=== PATIENT | male | born 1980 | race African-American/Black ===

== ENCOUNTER 2017-03-14 21:45 | Emergency (ER) | payer SELFPAY ==
[~2017-03-14] VITALS: Ht 177.8 cm; Wt 100.5 kg
[2017-03-14 21:50] VITALS: Ht 177.8 cm; Wt 100.5 kg
[2017-03-15] MEDS ORDERED: IBUPROFEN 600 MG TAB PO ONE
--- NOTE | 2017-03-15 00:46 | RADRPT ---
PROCEDURE: US left lower extremity venous Doppler CLINICAL INDICATION: Swelling TECHNIQUE: Multiple sonographic images of the left lower extremity deep venous system was obtained utilizing grayscale, color-flow, compressive sonography and Doppler imaging with augmentation. COMPARISON: No pertinent prior examinations were submitted for comparison. FINDINGS: There is normal compressibility and flow within the left common femoral, superficial femoral, poplit eal, and calf veins. IMPRESSION: No sonographic evidence for left deep venous thrombosis. RPTAT: HIKT .Adrien Cuenca MD, MD Date Time Electronically viewed and signed by .Adrien Cuenca MD, MD on 03/15/2017 00:46 .T/
--- NOTE | 2017-03-15 00:50 | RADRPT ---
PROCEDURE: XR Knee. CLINICAL INDICATION: Trauma TECHNIQUE: AP, lateral and oblique view of the left knee were obtained. COMPARISON: There are no similar studies submitted for comparison. FINDINGS: There is normal mineralization.There is no acute fracture or dislocation.No destructive lesion is id entified. There is likely a suprapatellar joint effusion. IMPRESSION: Probable joint effusion. RPTAT: HIKT .Adrien Cuenca MD, MD Date Time Electronically viewed and signed by .Adrien Cuenca MD, MD on 03/15/2017 00:49 .T/
[2017-03-15] MEDS ORDERED: NAPR-260 PO (01:03)
[2017-03-15] MEDS ORDERED: HYDR-906 PO (01:03)
--- NOTE | 2017-03-18 15:54 | ERD ---
ER Documentation Chief Complaint Date/Time DATE: 03/18/17 TIME: 15:51 Chief Complaint Fell last night and complaining of Left leg pain possible knee HPI This patient is a 36-year-old male presenting to the emergency department for left knee pain which occurred after a fall at approximately 10 PM last night. The patient states he was heavily intoxicated with alcohol and he does not remember exactly what occurred to the knee. The patient knows he did not have loss of consciousness or head injury. Aggravating factors of the knee pain include walking and bending the knee. He has taken no medication for relief of symptoms. Patient denies alleviating factors. He denies radiation of pain. He did not hear a pop when the injury occurred. The patient denies fevers, chills, or other symptoms at this time. ROS All systems reviewed and are negative except as per history of present illness. Medications Home Meds Active Scripts Naproxen* (Naprosyn*) 500 Mg Tablet, 500 MG PO BID Y for PAIN AND/OR INFLAMMATION, #30 TAB Prov:SCOTT MAYER PA-C 03/15/17 Hydrocodone/Acetaminophen ([place] 5-325 Tablet) 1 Each Tablet, 1 TAB PO Q6H Y for PAIN, #7 TAB Prov:SCOTT MAYER PA-C 03/15/17 Allergies Allergies: Coded Allergies: No Known Allergy (Unverified , 03/14/17) PMhx/Soc Medical and Surgical Hx: pt denies Medical Hx, pt denies Surgical Hx History of Surgery: No Anesthesia Reaction: No Hx Neurological Disorder: No Hx Respiratory Disorders: No Hx Cardiac Disorders: No Hx Psychiatric Problems: No Hx Miscellaneous Medical Probl: No Hx Alcohol Use: Yes Hx Substance Use: No Hx Tobacco Use: Yes Smoking Status: Current every day smoker Physical Exam Vitals Vital Signs Date Time Temp Pulse Resp B/P Pulse Ox O2 Delivery O2 Flow Rate FiO2 03/14/17 21:50 99.0 110 20 159/91 100 Physical Exam Const: The patient is resting comfortably in no acute distress. Head: Atraumatic Eyes: Normal Conjunctiva ENT: Normal External Ears, Nose and Mouth. Neck: Full range of motion..~ No meningismus. Resp: Clear to auscultation bilaterally Cardio: Regular rate and rhythm, no murmurs Abd: Soft, non tender, non distended. Normal bowel sounds Skin: No petechiae or rashes Back: No midline or flank tenderness Ext: There is some tenderness palpation of the left knee at the lateral and medial joint lines. There is limited range of motion secondary to pain. There is some mild soft tissue swelling noted localized to the knee. Neur: Awake and alert Psych: Normal Mood and Affect Results 24 hrs Current Medications Medications (Trade) Dose Ordered Sig/Adam Route PRN Reason Start Time Stop Time Status Last Admin Dose Admin Ibuprofen (Motrin) 600 mg ONCE ONCE PO 03/15/17 00:00 03/15/17 00:01 DC 03/15/17 00:07 [place] [address] Radiology Main Line: [phone] DIAGNOSTIC IMAGING REPORT Patient: AILEEN ORTIZ : 1980 Age: 36 Sex: M MR #: [id number] DOS: 03/15/17 0000 Ordering MD: SCOTT MAYER PA-C Location: [facility] Room/Bed: PROCEDURE: US left lower extremity venous Doppler CLINICAL INDICATION: Swelling TECHNIQUE: Multiple sonographic images of the left lower extremity deep venous system was obtained utilizing grayscale, color-flow, compressive sonography and Doppler imaging with augmentation. COMPARISON: No pertinent prior examinations were submitted for comparison. FINDINGS: There is normal compressibility and flow within the left common femoral, superficial femoral, popliteal, and calf veins. IMPRESSION: No sonographic evidence for left deep venous thrombosis. RPTAT: HIKT .Adrien Cuenca MD, Date Time Electronically viewed and signed by .Adrien Cuenca MD, MD on 03/15/2017 00:46 .T/ CC: SCOTT MAYER PA-C [place] [address] Radiology Main Line: [phone] DIAGNOSTIC IMAGING REPORT Patient: AILEEN ORTIZ : 1980 Age: 36 Sex: M MR #: [id number] [facility] #: [id number] DOS: 03/14/17 0000 Ordering MD: SCOTT MAYER PA-C Location: [facility] Room/Bed: PROCEDURE: XR Knee. CLINICAL INDICATION: Trauma TECHNIQUE: AP, lateral and oblique view of the left knee were obtained. COMPARISON: There are no similar studies submitted for comparison. FINDINGS: There is normal mineralization.There is no acute fracture or dislocation.No destructive lesion is identified. There is likely a suprapatellar joint effusion. IMPRESSION: Probable joint effusion. RPTAT: HIKT .Adrien Cuenca MD, MD Date Time Electronically viewed and signed by .Adrien Cuenca MD, MD on 03/15/2017 00:49 .T/ CC: SCOTT MAYER PA-C Procedures/MDM 36-year-old male presents to the emergency department for left knee pain after injury occurred yesterday. On physical examination the patient's pulse was slightly tachycardic at 110 in the blood pressure was elevated at 159/91. I believe that these abnormalities are due to acute pain. Patient's blood pressure was elevated (>120/80) but appears stable without evidence of hypertension emergency or urgency. The patient was counseled about the risks of hypertension and urged to pursue outpatient monitoring and therapy within a week with their primary care physician. Radiology of the left knee and venous Doppler of the left lower extremity were negative for DVT or acute fracture. There was a probable joint effusion according to the radiologist of the left knee. The patient was given an Gigi wrap in the department with crutches and appropriate training. He is stable for outpatient management with a prescription for [place], and naproxen. All of his questions and concerns were addressed. I have low suspicion for septic joint, DVT, septicemia, fracture, or other emergent conditions. Strict ER return precautions were discussed and the patient demonstrates good understanding. The patient is to have close follow-up with the primary care physician and orthopedics. Departure Diagnosis: Primary Impression: Knee pain, left Additional Impression: Left knee injury Condition: Fair Patient Instructions: Knee Sprain Referrals: [facility] YOU HAVE RECEIVED A MEDICAL SCREENING EXAM AND THE RESULTS INDICATE THAT YOU DO NOT HAVE A CONDITION THAT REQUIRES URGENT TREATMENT IN THE EMERGENCY DEPARTMENT. FURTHER EVALUATION AND TREATMENT OF YOUR CONDITION CAN WAIT UNTIL YOU ARE SEEN IN YOUR DOCTORS OFFICE WITHIN THE NEXT 1-2 DAYS. IT IS YOUR RESPONSIBILITY TO MAKE AN APPOINTMENT FOR FOLOW-UP CARE. IF YOU HAVE A PRIMARY DOCTOR --you should call your primary doctor and schedule an appointment IF YOU DO NOT HAVE A PRIMARY DOCTOR YOU CAN CALL OUR PHYSICIAN REFERRAL HOTLINE AT IF YOU CAN NOT AFFORD TO SEE A PHYSICIAN YOU CAN CHOSE FROM THE FOLLOWING [facility] [address] [facility] [address] [facility] [address] [facility] [address] [facility] [address] [facility] [facility] [address] [facility] Urgent Care 7 a.m.- 11 p.m. Every Day of the Week NO APPOINTMENT OR AUTHORIZATION NEEDED [facility] Hours: Mon-Fri 9:00 AM - 5:00 PM Additional Instructions: Make an appointment with an internet security specialist with the information provided within the next 1-3 days. Follow up with your PCP within the next 1-3 days for a repeat evaluation and a possible referral to a specialist, if required. Return the the emergency department immediately if symptoms worsen or change. If you have any questions regarding medications, ask your pharmacist or us before you leave. If any adverse reactions, occur while taking your medications, discontinue the treatment and return to the emergency department immediately. If any new or worsening symptoms, uncontrolled fevers, or other unexplained symptoms occur, return to the emergency department immediately. Take your medications as directed, and complete the entire course of treatment. SCOTT MAYER PA-C March 18, 2017 15:54
== END 2017-03-15 02:16 | disposition home or self-care (01) ==
LOC: FTE 21:45
DX: S89.92XA Unspecified injury of left lower leg, initial encounter (principal); F17.210 Nicotine dependence, cigarettes, uncomplicated; W18.39XA Other fall on same level, initial encounter; Y92.9 Unspecified place or not applicable
CPT/HCPCS: 73562; 93971